=== PATIENT | male | born 1945 | race Caucasian/White ===

== ENCOUNTER 2021-09-20 07:10 | Day surgery (SDC) | payer MEDICARE, BC ==
[2021-09-13 10:36] LABS: BASOPHILS % (AUTO) 0.8 % (0-1); EOSINOPHILS # (AUTO) 0.3 X10'3 (0-0.9); EOSINOPHILS % (AUTO) 5.5 % (0-6); LYMPHOCYTES % (AUTO) 38.5 % (21-51); MEAN CORPUSCULAR HEMOGLOBIN 25.8 PG (27.0-31.0); MEAN CORPUSCULAR HGB CONC 31.9 g/dL (33.0-36.5); MEAN PLATELET VOLUME 7.5 FL (7.4-10.4); MONOCYTES # (AUTO) 0.4 X10'3 (0-0.9); MONOCYTES % (AUTO) 8.6 % (2-12); NEUTROPHILS # (AUTO) 2.4 X10'3 (1.8-7.7); NEUTROPHILS % (AUTO) 46.6 % (42-75); PRE OP HEMATOCRIT 39.3 % (42.0-52.0); PRE OP HEMOGLOBIN 12.5 g/dL (14.0-17.9); PRE OP PLATELET COUNT 256 X10'3 (140-440); RED BLOOD COUNT 4.85 X10'6 (4.70-6.10)
[2021-09-13 10:59] LABS: ALBUMIN 3.5 G/DL (3.4-5.0); ALBUMIN/GLOBULIN RATIO 1.1 (1.1-1.5); ALKALINE PHOSPHATASE 80 IU/L (46-116); BLOOD UREA NITROGEN 22 MG/DL (7-18); BUN/CREATININE RATIO 25.3 (5.4-32.0); CHLORIDE 108 MMOL/L (99-107); CREATININE 0.87 MG/DL (0.60-1.10); PRE OP ALT 43 U/L (30-65); PRE OP ANION GAP 12 (8-16); PRE OP AST 37 U/L (10-37); PRE OP BILIRUB, TOTAL 0.5 MG/DL (0.0-1.0); PRE OP GLUCOSE 104 MG/DL (70-104); PRE OP POTASSIUM 3.9 MMOL/L (3.4-5.1); PRE OP SODIUM 144 MMOL/L (135-145); TOTAL CARBON DIOXIDE 24.2 MMOL/L (24-32); TOTAL PROTEIN 6.7 G/DL (6.4-8.2); eGFR 85 ML/MIN
[~2021-09-20] VITALS: Ht 185.4 cm; Wt 85.0 kg
[2021-09-20] VITALS (9 sets, daily range): BP systolic 117–160; BP diastolic 77–92
[~2021-09-20 07:10] MED LIST: ACET-2615 PO; AMLO5TAB PO; ASPI-1264 PO; ASPI81TA52 PO; BACL10TA PO; DICL75TA5 PO; FLAX10007 PO; GABA300C PO; IBUP-24 PO; LIDOcaine 0.5% (5mg/ml) 50ml vial ONE; LISI20TA28 PO; MELA10TA PO; MULT-1085 PO; NAPR-56 PO; OMEP20CA16 PO; OXYM-21 BOTHNARES; PRAV20TA4 PO; [UNRECOGNIZED DRUG - OTHER]; cefazolin/dext.iso 2gm/50ml IV ONE; famotidine 20mg tablet PO ONE; ringers solution, lacted 1,000 ML IV SCH
[2021-09-20] MEDS ORDERED: morphine 4 MG/ML inj SYRINge IV PRN (07:15)
[2021-09-20] MEDS ORDERED: fentaNYL/PF 50MCG/1 ML 2ML syringe IV PRN ×2 (07:15)
[2021-09-20] MEDS ORDERED: ondansetron/PF 4mg/2ml inj IV PRN (07:15)
[2021-09-20] MEDS ORDERED: hydrALAZINE 20mg/ml inj. IV PRN (07:15)
[2021-09-20] MEDS ORDERED: labetalol 20mg/4ml (5mg/ml) syringe IV PRN (07:15)
[2021-09-20] MEDS ORDERED: morphine 2 MG/ML inj. syringe IV PRN (07:15)
[2021-09-20] MEDS ORDERED: ringers solution, lacted 1,000 ML IV SCH (07:15)
[2021-09-20] MEDS ORDERED: propofol 10mg/ml 20ml vial IV ONE (10:40)
[2021-09-20] MEDS ORDERED: BUPIVAcaine 0.5% inj/PF 30 ML ONE (10:57)
--- NOTE | 2021-09-20 11:11 | NUR ---
Received from OR via [facility], accompanied by Anesthesiologist DR FERNANDES and report given by Anesthesiolgist. PT PRESENTS WITH PIV 20G RIGHT FOREARM, LEFT HAND WRIST DRESSING EVANS MONCADA. Addendum: 09/20/21 at 1126 by Nirmala Babin RN, RN Amended: Links added.
--- NOTE | 2021-09-20 12:11 | NUR ---
PATIENT DISCHARGED FROM PACU IN STABLE CONDITION AFTER WRITTEN AND VERBAL DISCHARGE INSTRUCTIONS GIVEN. PATIENT GAVE VERBAL UNDERSTANDING OF INSTRUCTIONS GIVEN. PATIENT LEFT FACILITY VIA WHEELCHAIR WITH RN. Addendum: 09/20/21 at 1227 by Nirmala Babin RN, RN Amended: Links added.
== END 2021-09-20 12:11 | disposition home or self-care (01) ==
LOC: PAS 07:10
PROVIDERS: ATTEND Orthopaedic Surgery Hand Surgery
DX: G56.02 Carpal tunnel syndrome, left upper limb (principal); I10 Essential (primary) hypertension; Z20.822 Contact with and (suspected) exposure to COVID-19; K21.9 Gastro-esophageal reflux disease without esophagitis; G43.909 Migraine, unspecified, not intractable, without status migrainosus; Z79.899 Other long term (current) drug therapy; Z79.82 Long term (current) use of aspirin; Z96.649 Presence of unspecified artificial hip joint
CPT/HCPCS: 36415; 64721; 80053; 82948; 85025; 93005; A6222; J0690; J2704; J3490; J7030; J7120; S0020; U0003; U0005; Z7506; Z7512; A4215